=== PATIENT | male | born 1945 | race Caucasian/White ===

== ENCOUNTER 2021-05-16 13:44 | Outpatient (CLI) | payer MEDICARE, SELFPAY ==
[2021-05-16] VITALS (7 sets, daily range): BP systolic 144–155; BP diastolic 70–81; PULSE 71–88; RESP 18; TEMP 37.7; O2SAT 94–95
--- NOTE | 2021-05-16 14:05 | XR_ITS ---
FINAL REPORT CLINICAL HISTORY: cough covid positive FINDINGS: A single view of the chest was obtained. The heart is normal in size. The mediastinum is unremarkable. There are chronic changes at the lung bases. There is no acute pulmonary abnormality. There is no pleural effusion. There is no pneumothorax. There is no acute osseous abnormality. IMPRESSION: No acute cardiopulmonary process. Reviewed, Interpreted and Dictated by Bereket Hayward MD Transcribed by Taya Ag Authenticated by Bereket Hayward MD on 05/16/2021 02:55:10 PM [facility]
[2021-05-16 14:54] LABS: Chloride 97 mmol/L (98-107); Potassium 4.6 mmoL/L (3.5-5.1); Sodium 134 mmol/L (136-145)
[2021-05-16 14:55] LABS: Basophils % 0.8 % (0.1-2.0); Hematocrit 49.4 % (42.0-52.0); Hemoglobin 15.9 g/dL (14.1-18.0); Lymphocytes # 0.6 K/mm3 (0.7-4.5); Lymphocytes % 15.5 % (10-50); Mean Corpuscular HGB Conc 32.2 g/dL (31.8-35.4); Mean Corpuscular Hemoglobin 30.8 pg (27.0-31.2); Mean Corpuscular Volume 95.5 fl (80-94); Mean Platelet Volume 8.6 fl (7.4-10.4); Monocytes # 0.3 K/mm3 (0.1-1.0); Monocytes % 6.2 % (1.7-9.3); Neutrophils # 3.2 K/mm3 (1.8-7.8); Neutrophils % 77.5 % (37.0-80.0); Platelet Count 141 K/mm3 (142-424); Red Blood Count 5.18 M/mm3 (4.60-6.20); Red Cell Distribution Width 12.9 % (11.5-17.5); White Blood Count 4.1 K/mm3 (4.8-10.8)
[2021-05-16 14:57] LABS: Alanine Aminotransferase 21 U/L (12-78); Albumin Level 3.7 g/dl (3.5-5.0); Albumin/Globulin Ratio 1.1 (1.1-1.8); Alkaline Phosphatase 69 U/L (38-126); Anion Gap 12.6 mEq/L (5-15); Aspartate Amino Transferase 47 U/L (17-59); Bilirubin,Total 0.6 mg/dl (0.2-1.3); Blood Urea Nitrogen 25 mg/dl (9-20); Calcium 8.9 mg/dl (8.4-10.2); Carbon Dioxide 29 mmol/L (22.0-30.0); Creatinine Clearance Estimated 59 mL/min (50-200); Estimated Glomerular Filt Rate 72 ml/min (>60); GFR (African American) 88 ML/MIN (>60); Globulin 3.4 g/dL (1.3-3.2); Glucose 144 mg/dl (74-100); Total Protein,Serum 7.1 g/dl (6.3-8.2)
== END 2021-05-16 17:24 | disposition home or self-care (01) ==
LOC: INF 13:52
PROVIDERS: PCP Internal Medicine Adolescent Medicine; Visit Provider Internal Medicine Adolescent Medicine
DX: U07.1 COVID-19 (principal); Z23 Encounter for immunization; E86.0 Dehydration
CPT/HCPCS: 36415; 71045; 80053; 83735; 85025; 96360; 96367; J2405

== ENCOUNTER 2021-05-23 21:57 | Inpatient (IN) | payer MEDICARE, SELFPAY ==
[2021-05-23 22:05] VITALS: BP 158/88; PULSE 113; RESP 20; TEMP 37.2; O2SAT 82; BMI 20.9
[2021-05-23 22:08] VITALS: BP 158/88; PULSE 122; O2SAT 83
--- NOTE | 2021-05-23 22:13 | XR_ITS ---
PROCEDURE INFORMATION: Exam: XR Chest Exam date and time: 05/23/2021 10:13 PM Age: 75 years old Clinical indication: Condition or disease; Other: Covid TECHNIQUE: Imaging protocol: XR of the chest. Views: 1 view. COMPARISON: CR XR CHEST PORTABLE 05/16/2021 2:36 PM FINDINGS: Lungs: Moderate bilateral airspace disease concerning for pneumonia most pronounced in the lower lobes. Pleural spaces: Unremarkable. No pleural effusion. No pneumothorax. Heart/Mediastinum: Cardiomegaly. Bones/joints: Unremarkable. IMPRESSION: Bilateral lower lobe predominant pneumonia.
[2021-05-23 22:20] VITALS: BMI 20.9
--- NOTE | 2021-05-23 22:21 | CT_ITS ---
PROCEDURE INFORMATION: Exam: CTA Chest With Contrast Exam date and time: 05/23/2021 10:21 PM Age: 75 years old Clinical indication: Shortness of breath; Additional info: SOA TECHNIQUE: Imaging protocol: Computed tomographic angiography of the chest with contrast. 3D rendering (Not supervised by radiologist): MIP and/or 3D reconstructed images were created by the technologist. Radiation optimization: All CT scans at this facility use at least one of these dose optimization techniques: automated exposure control; mA and/or kV adjustment per patient size (includes targeted exams where dose is matched to clinical indication); or iterative reconstruction. Contrast material: ISOVUE; Contrast volume: 70 ml; Contrast route: INTRAVENOUS (IV); COMPARISON: CR XR CHEST PORTABLE 05/23/2021 10:23 PM FINDINGS: Pulmonary arteries: Positive subsegmental PE in the right lower lobe. Aorta: Unremarkable. No aortic aneurysm. No aortic dissection. Lungs: Biapical scarring. There is extensive airspace disease in the lower lobes concerning for severe pneumonia. Pleural spaces: Unremarkable. No pneumothorax. No pleural effusion. Heart: Unremarkable. No cardiomegaly. No pericardial effusion. Lymph nodes: Enlarged mediastinal lymph nodes. Bones/joints: Unremarkable. No acute fracture. Soft tissues: Unremarkable. IMPRESSION: 1. Tiny subsegmental PE in the right lower lobe. 2. Severe bilateral lower lobe predominant pneumonia.
[2021-05-23 22:24] LABS: ABG Base Excess -1.9 mmol/L (-2.4-2.3); ABG HCO3 21.3 mmhg (22.0-26.0); ABG Oxygen Saturation 90 % (90-100); ABG PO2 51.7 mmhg (80-100); ABG TCO2 22.2 mmhg (23-27)
[2021-05-23 22:25] LABS: Allen's Test Acceptable; Oxygen 4l %; Source Right Radial
[2021-05-23 22:26] LABS: Influenza A, PCR Not Detected (NotDetected); Influenza B, PCR Not Detected (NotDetected)
--- NOTE | 2021-05-23 22:26 | CT_ITS ---
PROCEDURE INFORMATION: Exam: CT Abdomen And Pelvis With Contrast Exam date and time: 05/23/2021 10:26 PM Age: 75 years old Clinical indication: Abdominal pain; Additional info: Abd pain TECHNIQUE: Imaging protocol: Computed tomography of the abdomen and pelvis with contrast. Radiation optimization: All CT scans at this facility use at least one of these dose optimization techniques: automated exposure control; mA and/or kV adjustment per patient size (includes targeted exams where dose is matched to clinical indication); or iterative reconstruction. Contrast material: ISOVUE; Contrast volume: 70 ml; Contrast route: IV; COMPARISON: CR XR CHEST PORTABLE 05/23/2021 10:23 PM FINDINGS: Lungs: Bilateral lower lobe pneumonia. Liver: Normal. No mass. Gallbladder and bile ducts: Normal. No calcified stones. No ductal dilation. Pancreas: Normal. No ductal dilation. Spleen: Normal. No splenomegaly. Adrenal glands: Normal. No mass. Kidneys and ureters: Tiny cyst in the right kidney requiring no further follow-up. Tiny cyst in the left kidney requiring no further follow-up. No hydronephrosis or calcified stones. Stomach and bowel: Diverticulosis in the sigmoid and descending colon without diverticulitis. No small bowel obstruction. Appendix: No evidence of appendicitis. Intraperitoneal space: Unremarkable. No free air. No significant fluid collection. Vasculature: Unremarkable. No abdominal aortic aneurysm. Lymph nodes: Unremarkable. No enlarged lymph nodes. Urinary bladder: Multiple urinary bladder diverticuli. Reproductive: Unremarkable as visualized. Bones/joints: Unremarkable. No acute fracture. Soft tissues: Unremarkable. IMPRESSION: 1. Bilateral lower lobe pneumonia. 2. No acute intra-abdominal or intrapelvic process.
[2021-05-23 22:28] LABS: Basophils # 0.1 K/mm3 (0-0.2); Basophils % 0.5 % (0.1-2.0); Eosinophils % 0.2 % (0.1-12.0); Hematocrit 49.1 % (42.0-52.0); Lymphocytes # 0.9 K/mm3 (0.7-4.5); MANUAL DIFFERENTIAL MANUAL DIFFERENTIAL (MANUAL DIFF); Mean Corpuscular HGB Conc 32.6 g/dL (31.8-35.4); Mean Corpuscular Hemoglobin 31.1 pg (27.0-31.2); Mean Corpuscular Volume 95.2 fl (80-94); Mean Platelet Volume 9.9 fl (7.4-10.4); Monocytes # 0.7 K/mm3 (0.1-1.0); Monocytes % 5.9 % (1.7-9.3); Neutrophils # 10.9 K/mm3 (1.8-7.8); Neutrophils % 86.4 % (37.0-80.0); Platelet Count 167 K/mm3 (142-424); Red Blood Count 5.16 M/mm3 (4.60-6.20); Red Cell Distribution Width 12.9 % (11.5-17.5); White Blood Count 12.7 K/mm3 (4.8-10.8)
[2021-05-23 22:30] VITALS: BP 153/85; PULSE 112; O2SAT 91
[2021-05-23 22:42] LABS: Amylase 53 U/L (30-110)
[2021-05-23 22:43] LABS: Alanine Aminotransferase 31 U/L (12-78); Albumin Level 3.6 g/dl (3.5-5.0); Albumin/Globulin Ratio 0.8 (1.1-1.8); Alkaline Phosphatase 105 U/L (38-126); Anion Gap 12.9 mEq/L (5-15); Aspartate Amino Transferase 36 U/L (17-59); Bilirubin,Total 1.6 mg/dl (0.2-1.3); Blood Urea Nitrogen 16 mg/dl (9-20); Calcium 9.8 mg/dl (8.4-10.2); Carbon Dioxide 31 mmol/L (22.0-30.0); Chloride 93 mmol/L (98-107); Creatinine Clearance Estimated 62 mL/min (50-200); Estimated Glomerular Filt Rate 82 ml/min (>60); GFR (African American) 99 ML/MIN (>60); Globulin 4.3 g/dL (1.3-3.2); Glucose 158 mg/dl (74-100); Potassium 3.9 mmoL/L (3.5-5.1); Sodium 133 mmol/L (136-145); Total Protein,Serum 7.9 g/dl (6.3-8.2)
[2021-05-23 22:53] LABS: Coronavirus 19, PCR Detected (NotDetected); Erythrocyte Sedimentation Rate 19 mm/hr (0-20)
[2021-05-23 22:54] LABS: Eosinophils % 3 % (0-3); Hypochromasia 1+; Lactic Acid 1.7 mmol/L (0.7-2.1); Lymphocytes % 8 % (10-50); Monocytes % 6 % (2-9); Neutrophils % 83 % (42-76); Platelet Estimate Normal; Total Cells Counted 100
[2021-05-23 22:56] LABS: Troponin I < 0.01 ng/ml (0.00-0.034)
[2021-05-23 23:00] VITALS: BP 153/78; PULSE 104; O2SAT 93
[2021-05-23 23:02] LABS: Lipase 25 U/L (23-300)
--- NOTE | 2021-05-23 23:02 | ECG_ITS ---
APPROVED REPORT Exam: Resting ECG HR:103 bpm ECG Measurements Heart Rate 103 AXES ID 164 P 53 QRSd 76 QRS 23 QT 378 T 68 QTc 495 Conclusion Sinus tachycardia Otherwise normal ECG Electronically signed by : Parmjit Shore MD 05/26/2021 13:47:38
--- NOTE | 2021-05-23 23:27 | PC.NURSE ---
pt returned from rad.
[2021-05-23 23:30] VITALS: BP 162/83; PULSE 104; O2SAT 91
--- NOTE | 2021-05-23 23:41 | HMH.EDSOB ---
ED Disposition Clinical Impression: Pulmonary embolism associated with COVID-19, Pneumonia due to COVID-19 virus, Acute respiratory failure due to COVID-19 Disposition: Admitted As Inpatient Condition on Discharge: Serious Referrals: Parmjit Shore MD [Primary Care Provider] - - Critical Care Critical Care Time: No Attestation: On 05/23/21, the high probability of a clinically significant, sudden or life threatening deterioration of the following system(s) required my full and direct attention, intervention and personal management. The time I documented below is in addition to time spent performing reported procedures but includes the following listed in this critical care notation. Medical Decision Making - Medical Records Medical records reviewed: Yes: I reviewed the patient's medical records. - Sarabjit Inquiry Pt receiving controlled substance: No Vital Signs: 05/23/21 22:05 05/23/21 22:08 05/23/21 22:30 Temperature 99.0 F Temperature Source Rectal Pulse Rate 122 H 112 H Pulse Rate [Apical] 113 H Respiratory Rate 20 Blood Pressure 158/88 H 153/85 H Blood Pressure [Right Arm] 158/88 H Blood Pressure Mean Blood Pressure Mean [Right Arm] 111 Blood Pressure Source [Right Arm] Automatic Cuff Blood Pressure Position [Right Arm] Sitting 02 Sat by Pulse Oximetry 82 L 83 L 91 L Oxygen Delivery Method Room Air Room Air Nasal Cannula Oxygen Flow Rate (LPM) 4 05/23/21 23:00 05/23/21 23:30 05/23/21 23:45 Temperature Temperature Source Pulse Rate 104 H 104 H 103 H Pulse Rate [Apical] Respiratory Rate Blood Pressure 153/78 H 162/83 H 151/82 H Blood Pressure [Right Arm] Blood Pressure Mean 103 Blood Pressure Mean [Right Arm] Blood Pressure Source [Right Arm] Blood Pressure Position [Right Arm] 02 Sat by Pulse Oximetry 93 L 91 L 92 L Oxygen Delivery Method Nasal Cannula Nasal Cannula Oxygen Flow Rate (LPM) 4 4 4 - Lab Data Lab results reviewed: Yes: I reviewed the patient's lab results. Lab Results 05/23/21 22:11: Specimen Source Right radial, O2 % 4l, ABG pH 7.50 H, ABG pCO2 28.0 L, ABG pO2 51.7 L, ABG HCO3 21.3 L, ABG Total CO2 22.2 L, ABG O2 Saturation 90, ABG Base Excess -1.9, Burt Test Acceptable 05/23/21 22:15: WBC 12.7 H, RBC 5.16, Hgb 16.0, Hct 49.1, MCV 95.2 H, MCH 31.1, MCHC 32.6, RDW 12.9, Plt Count 167, MPV 9.9, Neut % (Auto) 86.4 H, Lymph % (Auto) 7.0 L, [place] % (Auto) 5.9, Eos % (Auto) 0.2, Baso % (Auto) 0.5, Neut # (Auto) 10.9 H, Lymph # (Auto) 0.9, [place] # (Auto) 0.7, Eos # (Auto) 0.0, Baso # (Auto) 0.1, Total Counted 100, Neutrophils % (Manual) 83 H, Lymphocytes % (Manual) 8 L, Monocytes % (Manual) 6, Eosinophils % (Manual) 3, Platelet Estimate Normal, Hypochromasia 1+, ESR 19 05/23/21 22:15: Sodium 133 L, Potassium 3.9, Chloride 93 L, Carbon Dioxide 31 H, Anion Gap 12.9, BUN 16, Creatinine 0.90, Estimated Creat Clear 62, Estimated GFR 82, Est GFR ( Amer) 99, Glucose 158 H, Calcium 9.8, Total Bilirubin 1.6 H, AST 36, ALT 31, Alkaline Phosphatase 105, Total Protein 7.9, Albumin 3.6, Globulin 4.3 H, Albumin/Globulin Ratio 0.8 L 05/23/21 22:15: Lactate 1.7 05/23/21 22:15: SARS-CoV-2 (PCR) Detected A, Influenza A Untype (PCR) Not detected, Influenza Type B (PCR) Not detected 05/23/21 22:15: Troponin I < 0.01, Amylase 53, Procalcitonin 0.140 05/23/21 22:15: Lipase 25 Result diagrams: 05/23/21 22:15 05/23/21 22:15 Orders (Tests/Meds): ED MEDICATIONS Generic Name Dose Route Start Last Admin Trade Name Freq PRN Reason Stop Dose Admin Sodium Chloride 1,000 mls @ 999 mls/hr 05/23/21 22:45 05/23/21 22:42 Sod Chlor 0.9% 1000ml Bag IV 05/23/21 23:45 999 mls/hr .[id number] MARY BETH Administration Discontinued Medications Generic Name Dose Route Start Last Admin Trade Name Freq PRN Reason Stop Dose Admin Dexamethasone Sodium Phosphate 10 mg 05/23/21 22:37 05/23/21 22:42 Dexamethasone 4mg/Ml 5ml Mdv IV 05/23/21 22:38 10 mg ONC
[2021-05-23 23:45] VITALS: BP 151/82; PULSE 103; O2SAT 92
--- NOTE | 2021-05-23 23:50 | PC.NURSE ---
Dr Malone speaking with NATALIOAD
[2021-05-24] VITALS (14 sets, daily range): BP systolic 127–154; BP diastolic 66–89; PULSE 71–113; RESP 18–92; TEMP 36.6–37.6; O2SAT 90–96; BMI 19.8
[2021-05-24 00:09] LABS: Microscopic, Urine URINE MICROSCOPIC (MICROSCOPIC)
--- NOTE | 2021-05-24 00:09 | PC.NURSE ---
rohit on phone with dr schuster @ this time
[2021-05-24 00:15] LABS: Appearance,Urine CLEAR (Clear); Bilirubin,Urine Negative (Negative); Blood, Urine TRACE-I (Negative); Color,Urine YELLOW (Yellow); Glucose,Urine (UA) Negative (Negative); Ketones,Urine Negative (Negative); Leukocyte Esterase,Urine Negative (Negative); Nitrate,Urine Negative (Negative); Protein,Urine 2+ (Negative)
--- NOTE | 2021-05-24 00:19 | PC.NURSE ---
pt has password Bashir set up @ this time
[2021-05-24 00:26] LABS: WBC,Urine Occasional #/hpf (0-3)
--- NOTE | 2021-05-24 00:56 | PC.NURSE ---
PT ARRIVED TO FLOOR VIA W/C FROM ED W/STAFF @ [id number]
--- NOTE | 2021-05-24 07:00 | XR_ITS ---
FINAL REPORT CLINICAL HISTORY: sob COMPARISON: May 23, 2021 FINDINGS: SINGLE VIEW CHEST. The heart is normal in size. The mediastinum is unremarkable. There are persistent bilateral pulmonary opacities consistent with bilateral pneumonia. There is no pneumothorax. IMPRESSION: Bilateral pneumonia. Reviewed, Interpreted and Dictated by Jerry Hodges III, MD Transcribed by Renetta Carr Authenticated by Jerry Hodges III, MD on 05/24/2021 07:42:34 AM [facility]
[2021-05-24 07:05] LABS: Basophils % 0.2 % (0.1-2.0); Hematocrit 43.3 % (42.0-52.0); Lymphocytes # 0.5 K/mm3 (0.7-4.5); Lymphocytes % 3.8 % (10-50); Mean Corpuscular HGB Conc 32.3 g/dL (31.8-35.4); Mean Corpuscular Hemoglobin 30.9 pg (27.0-31.2); Mean Corpuscular Volume 95.4 fl (80-94); Mean Platelet Volume 10.1 fl (7.4-10.4); Monocytes # 0.3 K/mm3 (0.1-1.0); Monocytes % 2.1 % (1.7-9.3); Neutrophils # 12.8 K/mm3 (1.8-7.8); Neutrophils % 93.9 % (37.0-80.0); Platelet Count 233 K/mm3 (142-424); Red Blood Count 4.54 M/mm3 (4.60-6.20); Red Cell Distribution Width 12.9 % (11.5-17.5); White Blood Count 13.6 K/mm3 (4.8-10.8)
--- NOTE | 2021-05-24 07:13 | HMH.HP ---
*Admission Date: 05/24/21 *Chief complaint: Covid pneumonia, shortness of breath *History of present illness: Mr. Velez is a 75-year-old male with no significant past medical history. Recently established with our office a week ago due to concern for exposure to COVID. Symptoms of cough and flulike illness with concern for slight increase of confusion began around 14 May. Patient was diagnosed in our office with COVID on the third and treated with monoclonal antibody therapy on the same day. He has been at home until presenting to the ER yesterday due to increased work of breathing, complaint of right-sided upper quadrant pain, and increased cough, shortness of breath, nausea and vomiting. On assessment in the ER he was found to be tachycardic, tachypneic, new oxygen requirement of 4 L to maintain saturations in the low 90s. Imaging of his chest showed diffuse bilateral pneumonia. CTA of his chest concerning for subsegmental PE in the right lower lobe and significant lower lobe pneumonia. CT of his abdomen benign. Patient admitted to medicine for further management of his pulmonary emboli and acute hypoxemic respiratory failure secondary to COVID-19 pneumonia. On evaluation this morning, patient is very pleasant. Oriented to person and place. Just knows he does not feel well and felt more short of breath at home. Denies any nausea, chest pain, diarrhea, headaches this morning. Feeling better on Vapotherm. Currently on 60% and 30 L [facility] History I have reviewed the patient's past medical history: Yes *Have you ever received a pneumonia vaccine?: No *Have you received a flu vaccine this season?: No Other Surgeries: Yes: Hernia Repair, Other - *Social History Smoking Status: Unknown if ever smoked Alcohol Intake: never *Occupational Status:: retired Housing: house Household Members: family *Travel in the last 8 weeks: None Family Hx:: No significant family history Review of Systems - Review of Systems Review of systems:: pertinent systems reviewed and negative unless documented below (14 point review of systems performed, pertinent positives and negatives as per HPI) - *Neurologic Denies localized weakness Meds Home Medications Medication Instructions Recorded Confirmed Type ondansetron HCL [Ondansetron 4mg 4 mg PO TID PRN 05/24/21 05/24/21 History tab*] Allergies Allergy/AdvReac Type Severity Reaction Status Date / Time aspirin Allergy Swelling Verified 05/23/21 22:33 of Lip/Tongue/Throat Penicillins Allergy Swelling Verified 05/23/21 22:33 of Lip/Tongue/Throat Exam Vital signs and Labs for Last 24 Hours: Temp Pulse Resp BP Pulse Ox 99.1 F 98 H 18 141/79 H 90 L 05/24/21 04:00 05/24/21 04:00 05/24/21 04:00 05/24/21 04:00 05/24/21 05:55 Laboratory Results - last 24 hr 05/23/21 22:11: Specimen Source Right radial, O2 % 4l, ABG pH 7.50 H, ABG pCO2 28.0 L, ABG pO2 51.7 L, ABG HCO3 21.3 L, ABG Total CO2 22.2 L, ABG O2 Saturation 90, ABG Base Excess -1.9, Burt Test Acceptable 05/23/21 22:15: WBC 12.7 H, RBC 5.16, Hgb 16.0, Hct 49.1, MCV 95.2 H, MCH 31.1, MCHC 32.6, RDW 12.9, Plt Count 167, MPV 9.9, Neut % (Auto) 86.4 H, Lymph % (Auto) 7.0 L, [place] % (Auto) 5.9, Eos % (Auto) 0.2, Baso % (Auto) 0.5, Neut # (Auto) 10.9 H, Lymph # (Auto) 0.9, [place] # (Auto) 0.7, Eos # (Auto) 0.0, Baso # (Auto) 0.1, Total Counted 100, Neutrophils % (Manual) 83 H, Lymphocytes % (Manual) 8 L, Monocytes % (Manual) 6, Eosinophils % (Manual) 3, Platelet Estimate Normal, Hypochromasia 1+, ESR 19 05/23/21 22:15: Sodium 133 L, Potassium 3.9, Chloride 93 L, Carbon Dioxide 31 H, Anion Gap 12.9, BUN 16, Creatinine 0.90, Estimated Creat Clear 62, Estimated GFR 82, Est GFR ( Amer) 99, Glucose 158 H, Calcium 9.8, Total Bilirubin 1.6 H, AST 36, ALT 31, Alkaline Phosphatase 105, Total Protein 7.9, Albumin 3.6, Globulin 4.3 H, Albumin/Globulin Ratio 0.8 L 05/23/21 22:15: Lactate 1.7 05/23/21 22:15: SARS-Co
[2021-05-24 07:15] LABS: Anion Gap 12.3 mEq/L (5-15); Blood Urea Nitrogen 16 mg/dl (9-20); Carbon Dioxide 25 mmol/L (22.0-30.0); Chloride 100 mmol/L (98-107); Creatinine Clearance Estimated 58 mL/min (50-200); Estimated Glomerular Filt Rate 109 ml/min (>60); GFR (African American) 132 ML/MIN (>60); Glucose 174 mg/dl (74-100); Potassium 4.3 mmoL/L (3.5-5.1); Sodium 133 mmol/L (136-145)
[2021-05-24 07:25] LABS: Hemoglobin 14.2 g/dL (14.1-18.0)
--- NOTE | 2021-05-24 07:41 | P.CONPHA_ITS ---
[facility] Pharmacy VTE Monitoring - Patient Demographics Admission date: 05/24/21 Report Date: 05/24/21 Time: 07:41 Allergies/Adverse Reactions: Patient Allergies aspirin Allergy (Verified 05/23/21 22:33) Swelling of Lip/Tongue/Throat Penicillins Allergy (Verified 05/23/21 22:33) Swelling of Lip/Tongue/Throat Height: 1.83 m Weight: 66.179 kg Patient Problems: Current Active Problems Pulmonary embolism associated with COVID-19 (Acute) Pneumonia due to COVID-19 virus (Acute) Acute respiratory failure due to COVID-19 (Acute) - VTE Risk Labs: VTE Related Lab Results Hgb 14.2 g/dL (14.1-18.0) D 05/24/21 06:06 Hct 43.3 % (42.0-52.0) 05/24/21 06:06 Plt Count 233 K/mm3 (142-424) D 05/24/21 06:06 BUN 16 mg/dl (9-20) 05/24/21 06:06 Creatinine 0.70 mg/dl (0.66-1.25) D 05/24/21 06:06 Estimated Creat Clear 58 mL/min (50-200) 05/24/21 06:06 Was VTE Risk Assessment Performed: Yes VTE Risk Level: Moderate Risk Clinical Trial Participant: No - Prophylaxis VTE Prophylaxis Ordered?: Yes Types of VTE Prophylaxis: TEDS Knee High, Pharmacological Pharmacologic Type: Enoxaparin
--- NOTE | 2021-05-24 10:16 | HMH.PHAINT ---
verified pt meds with doctors office
--- NOTE | 2021-05-24 15:36 | PC.NURSE ---
Pt is alert to self and place. Lungs are clear but diminished. He remains on vapotherm 30L/60% w/O2 sats in the mid 90's. He has an intermittent, non productive cough. IS spirometer was given to patient with thorough instructions on use but patient was unable to correctly perform return demonstration. Will attempt again later. He uses a urinal at the bedside independently. Appetite OK. Daughter called and was updated on poc. I also called daughter from patients room so she could talk to him. No complaints verbalized.
--- NOTE | 2021-05-24 18:21 | PC.NURSE ---
Pt removed his hearing aid and gave it Will, RT. I took it and put it in a denture cup with pts label and placed on bedside table.
[2021-05-25] VITALS (9 sets, daily range): BP systolic 113–151; BP diastolic 61–79; PULSE 64–119; RESP 18–22; TEMP 36.4–36.9; O2SAT 9–95; BMI 19.9
[2021-05-25 06:30] LABS: Basophils % 0.2 % (0.1-2.0); Hematocrit 41.3 % (42.0-52.0); Hemoglobin 13.3 g/dL (14.1-18.0); Lymphocytes % 5.2 % (10-50); Mean Corpuscular HGB Conc 32.2 g/dL (31.8-35.4); Mean Corpuscular Hemoglobin 30.5 pg (27.0-31.2); Mean Corpuscular Volume 94.6 fl (80-94); Mean Platelet Volume 10.3 fl (7.4-10.4); Monocytes # 0.9 K/mm3 (0.1-1.0); Monocytes % 4.9 % (1.7-9.3); Neutrophils # 16.6 K/mm3 (1.8-7.8); Neutrophils % 89.7 % (37.0-80.0); Platelet Count 138 K/mm3 (142-424); Red Blood Count 4.36 M/mm3 (4.60-6.20); Red Cell Distribution Width 13.1 % (11.5-17.5); White Blood Count 18.5 K/mm3 (4.8-10.8)
[2021-05-25 06:33] LABS: Alanine Aminotransferase 23 U/L (12-78); Albumin Level 2.9 g/dl (3.5-5.0); Albumin/Globulin Ratio 0.8 (1.1-1.8); Alkaline Phosphatase 84 U/L (38-126); Aspartate Amino Transferase 30 U/L (17-59); Bilirubin,Total 0.7 mg/dl (0.2-1.3); Blood Urea Nitrogen 18 mg/dl (9-20); Calcium 9.2 mg/dl (8.4-10.2); Carbon Dioxide 27 mmol/L (22.0-30.0); Chloride 103 mmol/L (98-107); Creatinine Clearance Estimated 59 mL/min (50-200); Estimated Glomerular Filt Rate 109 ml/min (>60); GFR (African American) 132 ML/MIN (>60); Globulin 3.5 g/dL (1.3-3.2); Glucose 141 mg/dl (74-100); Magnesium 2.2 mg/dl (1.6-2.3); Sodium 134 mmol/L (136-145); Total Protein,Serum 6.4 g/dl (6.3-8.2)
[2021-05-25 07:07] LABS: MANUAL DIFFERENTIAL MANUAL DIFFERENTIAL (MANUAL DIFF)
--- NOTE | 2021-05-25 08:51 | P.PN_ITS ---
Internal Medicine - PN: Subj *Date: 05/25/21 *Time: 08:51 Interval history: Patient is awake, alert, oriented x2, recognizes me, states that he wants to go home. Nurses report that he ate about 50% of his breakfast. Exam Vital signs and Labs for Last 24 Hours: Temp Pulse Resp BP Pulse Ox 97.6 F 85 20 142/79 H 92 L 05/25/21 04:00 05/25/21 06:22 05/25/21 04:00 05/25/21 04:00 05/25/21 06:22 Laboratory Results - last 24 hr 05/25/21 05:44: WBC 18.5 H D, RBC 4.36 L, Hgb 13.3 L, Hct 41.3 L, MCV 94.6 H, MCH 30.5, MCHC 32.2, RDW 13.1, Plt Count 138 L D, MPV 10.3, Neut % (Auto) 89.7 H , Lymph % (Auto) 5.2 L, [place] % (Auto) 4.9, Eos % (Auto) 0.0 L, Baso % (Auto) 0.2, Neut # (Auto) 16.6 H, Lymph # (Auto) 1.0, [place] # (Auto) 0.9, Eos # (Auto) 0.0, Baso # (Auto) 0.0 05/25/21 05:44: Sodium 134 L, Potassium 4.0, Chloride 103, Carbon Dioxide 27, Anion Gap 8.0, BUN 18, Creatinine 0.70, Estimated Creat Clear 59, Estimated GFR 109, Est GFR ( Amer) 132, Glucose 141 H, Calcium 9.2, Magnesium 2.2, Total Bilirubin 0.7, AST 30, ALT 23 D, Alkaline Phosphatase 84, Total Protein 6.4, Albumin 2.9 L D, Globulin 3.5 H, Albumin/Globulin Ratio 0.8 L I & O for Last 24 hours: Intake & Output 05/22/21 05/23/21 05/24/21 05/25/21 11:59 11:59 11:59 11:59 Intake Total 1461 / 1461 360 / 360 Output Total 450 / 450 300 / 300 Balance 1011 / 1011 60 / 60 Weight 145 lb 14.4 oz 147 lb 6.4 oz Narrative: Patient sitting up in bed. Able to expand his chest fairly well, scattered rhonchi bilaterally. No tracheal deviation. Heart rate regular. Abdomen soft, he appears fairly well-hydrated. Oropharynx clear. Globally weak but able to move arms and legs well. Assessment and Plan (1) Acute respiratory failure due to COVID-19 Status: Acute Category: Medical Code(s): U07.1 - COVID-19; J96.00 - Acute respiratory failure, unspecified whether with hypoxia or hypercapnia (2) Pneumonia due to COVID-19 virus Status: Acute Category: Medical Code(s): U07.1 - COVID-19; J12.82 - Pneumonia due to coronavirus disease 2018 (3) Pulmonary embolism associated with COVID-19 Status: Acute Category: Medical Code(s): U07.1 - COVID-19; I26.99 - Other pulmonary embolism without acute cor pulmonale - Assessment and plan all Dx Assessment and Plan for all problems:: 1. 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 Patient has had infusion therapy and given length of time since diagnosis is not a candidate for remdesivir. I would also withhold steroids at this point, agree with Dr. Mcgarry's note on admission. 2. PE-on Lovenox, transition to Xarelto today. 3. 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 4. Continue nutritional support, up in a chair today.
[2021-05-25 09:08] LABS: Lymphocytes % 7 % (10-50); Monocytes % 1 % (2-9); Neutrophils % 92 % (42-76); Total Cells Counted 100
[2021-05-25 09:09] LABS: Platelet Estimate Clumped
[2021-05-25 09:11] LABS: Burr Cells 1+
--- NOTE | 2021-05-25 09:42 | HMH.OTEV ---
OT Inpatient Evaluation Rehab OT IP Evaluation Start: 05/25/21 08:53 Freq: ONCE Status: Complete Protocol: Document 05/25/21 09:[facility] (Rec: 05/25/21 09:41 [facility] [id number]) Rehab OT IP Assessment Subjective History Pt oriented x 2 on arrival. Pt was admitted via ED on due to Covid PNA and SOB. The following information was copied from patient physical and history report: Mr. Velez is a 75-year-old male with no significant past medical history. Recently established with our office a week ago due to concern for exposure to COVID. Symptoms of cough and flulike illness with concern for slight increase of confusion began around 14 May. Patient was diagnosed in our office with COVID on the third and treated with monoclonal antibody therapy on the same day. He has been at home until presenting to the ER yesterday due to increased work of breathing, complaint of right- sided upper quadrant pain, and increased cough, shortness of breath, nausea and vomiting. On assessment in the ER he was found to be tachycardic, tachypneic, new oxygen requirement of 4 L to maintain saturations in the low 90s. Imaging of his chest showed diffuse bilateral pneumonia. CTA of his chest concerning for subsegmental PE in the right lower lobe and significant lower lobe pneumonia. CT of his abdomen benign. Patient admitted to medicine for further management of his pulmonary emboli and acute hypoxemic respiratory failure secondary to COVID-19 pneumonia. On evaluation this morning,
--- NOTE | 2021-05-25 11:47 | HMH.PTEV ---
Physical Therapy Evaluation Rehab PT IP Evaluation Start: 05/25/21 08:53 Freq: ONCE Status: Active Protocol: Document 05/25/21 11:41 PHORNE (Rec: 05/25/21 11:46 PHORNE [id number]) Subjective/History History History 75 yowm adm to [facility] with COVID PNA. He reports he lives with spouse, no steps to enter the home, and he is independent with all mobility at baseline. Subjective Subjective Pt reports no c/o pain or discomfort this am, agrees to OOB. Rehab PT IP Eval Objective Appearance Patient Behavior Appropriate Patient Orientation Person,Place Difficulty following instructions none Speech Pattern Clear Ambulation Patient Able to Ambulate Yes Ambulation Observation IP General Gait Pattern Observation Wide Based Gait Ambulation Distance (feet) 15 Ambulation Assistive Device None Ambulation Ability Independent Balance Ability to Arise Able, uses arms to help Sitting Balance Steady, safe Standing Balance Steady, wide stance Dynamic Sitting Balance Ability Good Dynamic Standing Balance Ability Good Transfers Bed Transfer Ability Supervision/Stand by Chair Transfer Ability Supervision/Stand by Sit to Stand Bed Transfer Ability Supervision/Stand by Sit to Stand Chair Transfer Ability Supervision/Stand by ROM All Extremities PT ROM Status WFL MMT All Extremities PT MMT WFL Rehab PT IP prob,goals,plan Problems Date of Evaluation: 05/25/21 PT IP Problems Bed Mobility,Transfers,Gait Rehab Potential Rehab Potential Good Plan PT Intervention Plan Bed Mobility,Transfers,Gait, Self care,Therapeutic Exercise PT Plan Frequency BID Duration LOS Discharge Goals Bed Transfer Ability Independent Sit to Stand Chair Transfer Ability Independent Ambulation Assistive Device None Ambulation Distance (feet) 40 Discharge Plan PT Discharge Plan Pt is most appropriate for home with home health therapy at this time with family assist. G -code Required No Eval Complexity Eval Charge Codes 58594 - Moderate Complexity PHYSICIAN CERTIFICATION: I certify the specified therapy services for Chris Velez are required, authorized, and reviewed every 30 days.
--- NOTE | 2021-05-25 14:33 | PC.NURSE ---
Request received from MD to allow patient's family to visit. Chart reviewed per myself. Spoke directly with patient's daughter Jodie Lala via phone. Notified patient's daughter that visitation exception would be allowed for 1 + patient's at the same consecutive time. Daughter stated she was on the way to the hospital to brings patient's belongings and requested to visit patient. Educated in detail to Spike that mask would be required by both and must stay at patient's bedside. Discussed at length and in detail with Spike that visits cannot exceed 3 hours at maximum. Discussed in detail with Spike that noncompliance would result in forefeiture of visitation exception. Notified nursing staff and [employer]. Will follow up as needed.-----Kings Kumar RN, CNO
[2021-05-26] VITALS (11 sets, daily range): BP systolic 120–164; BP diastolic 64–80; PULSE 76–114; RESP 18–24; TEMP 36.9–37.3; O2SAT 90–99; BMI 20.5
--- NOTE | 2021-05-26 05:50 | PC.NURSE ---
pt has been awake most of the night, no issues or concerns noted, vss, pt on vapotherm 30/60 with o2 sats at 96%
--- NOTE | 2021-05-26 07:58 | PC.NURSE ---
Call received from patient's daughter requesting that patient's son be allowed to visit in her place. Daughter stated I don't live in town and can't make it there everyday. My mom doesn't drive and my brother would be bringing her if that is ok. Notified patient's daughter that it would be permitted to change the visitor without any issue. Notified nursing staff of change. Will follow up as needed. MERCEDES Downey
--- NOTE | 2021-05-26 08:40 | P.PN_ITS ---
Internal Medicine - PN: Subj *Date: 05/26/21 *Time: 08:40 Interval history: Patient is pleasant, talkative, oriented x2 which is his baseline at this point because of his somewhat confused status about the date. Remains on Vapotherm settings. Tolerating these well. O2 saturations 96%. Breathing comfortably, has eaten about a third of his breakfast this morning. Exam Vital signs and Labs for Last 24 Hours: Temp Pulse Resp BP Pulse Ox 98.7 F 80 20 164/75 H 94 L 05/26/21 04:00 05/26/21 06:37 05/26/21 04:00 05/26/21 04:00 05/26/21 06:37 Laboratory Results - last 24 hr 05/25/21 05:44: Total Counted 100, Neutrophils % (Manual) 92 H, Lymphocytes % (Manual) 7 L, Monocytes % (Manual) 1 L, Platelet Estimate Clumped, [place] Cells 1+ I & O for Last 24 hours: Intake & Output 05/23/21 05/24/21 05/25/21 05/26/21 11:59 11:59 11:59 11:59 Intake Total 1461 / 1461 600 / 600 340 / 340 Output Total 450 / 450 600 / 600 1775 / 1775 Balance 1011 / 1011 0 / 0 -1435 / -1435 Weight 145 lb 14.4 oz 147 lb 11.355 oz 151 lb 3.2 oz Microbiology Reports for the Last 24 Hours: Microbiology 05/23/21 22:15 Blood Blood Culture - Preliminary NO GROWTH AFTER 48 HOURS 05/23/21 22:15 Blood Blood Culture - Preliminary NO GROWTH AFTER 48 HOURS Narrative: Heart rate regular. Abdomen soft, extremities warm and well-perfused, no neurologic deficits except for his previously noted dysarthria. Lungs have good air movement, scattered rhonchi but no wheezing, no crackles. Symmetric air entry. Assessment and Plan (1) Acute respiratory failure due to COVID-19 Status: Acute Category: Medical Code(s): U07.1 - COVID-19; J96.00 - Acute respiratory failure, unspecified whether with hypoxia or hypercapnia (2) Pneumonia due to COVID-19 virus Status: Acute Category: Medical Code(s): U07.1 - COVID-19; J12.82 - Pneumonia due to coronavirus disease 2019 (3) Pulmonary embolism associated with COVID-19 Status: Acute Category: Medical Code(s): U07.1 - COVID-19; I26.99 - Other pulmonary embolism without acute cor pulmonale - Assessment and plan all Dx Assessment and Plan for all problems:: Overall stable/improved. Wean oxygen today. PT/OT evaluation noted. No change in medications today.
--- NOTE | 2021-05-26 12:47 | DIET.NUTRFU ---
Reviewing meal intake, he only consumed 25% of dinner and 10% of breakfast. He is meeting nutritional needs and at risk for weight loss. Will increase ensure to QID providing 2 cartons with dinner. Providing 880kcal 32gm protein, to help meet nutritional needs of 1700kcal and 68gm protein. Will continue to monitor meal intake, he is on regular diet. Would also recommend adding zinc and vitamin C which can promote good immune strength.
--- NOTE | 2021-05-26 13:31 | PC.NURSE ---
PT SITTING UP IN THE CHAIR. ALERT AND ORIENTED X2. NO COMPLAINTS OF DISCOMFORT. EATING AND DRINKING WELL. PT STATES HE IS FEELING BETTER. O2 SATURATION HAS MAINTAINED 90-94%. VAPOTHERM HAS BEEN WEANED TO 25 L 50% FIO2. PT PARTICIPATED WELL WITH PHYSICAL THERAPY THIS SHIFT. LUNG SOUNDS HAVE SCATTERED RHONCHI. ABDOMEN SOFT/NON TENDER WITH ACTIVE BOWEL SOUNDS. NO SWELLING NOTED TO BLE. WILL CONTINUE TO MONITOR.
--- NOTE | 2021-05-26 14:54 | DIET.NUTRFU ---
Spoke to nursing staff post lunch, he ate everything except chicken and drank 100% ensure. Also recommended vitamin C and zinc be added d/t COVID dx if medically feasible
[2021-05-27] VITALS (9 sets, daily range): BP systolic 128–142; BP diastolic 68–80; PULSE 63–117; RESP 17–24; TEMP 36.6–36.8; O2SAT 92–98; BMI 19.3
--- NOTE | 2021-05-27 04:26 | PC.NURSE ---
pt has rested well this shift, has been using urinal independently, was switched to 15L high flow NC, O2 sats have remained 91-94%, no complaints of SOA or pain this shift, HR has remained 102-109 this shift, systolic BP 120-136
--- NOTE | 2021-05-27 07:38 | HMH.ACPN2 ---
Internal Medicine - PN: Subj *Date: 05/27/21 *Time: 18:37 Interval history: Mr. Velez remains afebrile. Able to wean O2 down to 8L [place]. Denies any nausea or vomiting. Has been having increased stool output over the past 24 hours however. Exam cut short by him rushing to the bathroom for diarrhea again. Has had about 8 bowel movements reportedly in the past 24 hours. Tolerating fair p.o. intake. Staying hydrated. Denies chest pain, blood in stool, confusion Exam Vital signs and Labs for Last 24 Hours: Temp Pulse Resp BP Pulse Ox 98.0 F 101 H 20 136/80 94 L 05/27/21 04:00 05/27/21 06:43 05/27/21 04:00 05/27/21 04:00 05/27/21 06:43 I & O for Last 24 hours: Intake & Output 05/24/21 05/25/21 05/26/21 05/27/21 23:59 23:59 23:59 23:59 Intake Total 1821 / 1821 480 / 480 940 / 940 100 / 100 Output Total 550 / 750 1400 / 1900 1050 / 1250 200 / 200 Balance 1271 / 1071 -920 / -1420 -110 / -310 -100 / -100 Weight 66.179 kg 67 kg 68.583 kg 64.954 kg - Constitutional mild distress, thin - *Routine HEENT Exam Head: Present: normocephalic Eye: Present: EOMI, PERRL ENT: Present: mucous membranes moist - *Routine Neck Exam Present: supple. Absent: lymphadenopathy - *Routine Respiratory Exam Present: CTA bilaterally - *Routine Cardiovascular Exam Present: RRR - *Routine Abdominal Exam Present: soft. Absent: tenderness Comments: Hyperactive bowel sounds - *Routine Extremities Exam Absent: cyanosis, clubbing, edema - *Routine Skin Exam Present: warm. Absent: rash - *Routine Neurological Exam Present: alert, oriented X3 Assessment and Plan (1) Acute respiratory failure due to COVID-19 Status: Acute Category: Medical Code(s): U07.1 - COVID-19; J96.00 - Acute respiratory failure, unspecified whether with hypoxia or hypercapnia (2) Pneumonia due to COVID-19 virus Status: Acute Category: Medical Code(s): U07.1 - COVID-19; J12.82 - Pneumonia due to coronavirus disease 2019 (3) Pulmonary embolism associated with COVID-19 Status: Acute Category: Medical Code(s): U07.1 - COVID-19; I26.99 - Other pulmonary embolism without acute cor pulmonale (4) Diarrhea Status: Acute Category: Medical Code(s): R19.7 - Diarrhea, unspecified - Assessment and plan all Dx Assessment and Plan for all problems:: 75-year-old male with no known significant past medical history, other than 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 Unknown extent of this history. Not on any home oxygen prior to diagnosis of COVID-19. Status post monoclonal antibody infusion a week prior to admission. Presented with hypoxemic respiratory failure, progressive pneumonia, subsegmental right lower lobe pulmonary emboli. Tolerating inpatient management. Has developed worsening diarrhea over the past 24 hours. Acute hypoxemic respiratory failure secondary to COVID-19 pneumonia -Given that patient is at least 10 days out from onset of symptoms, status post monoclonal antibody therapy on the third, no indication for remdesivir or baricitinib at this time. We will continue with steroids and supplemental oxygen with goal saturation greater 90%. Weaning to nasal cannula if able in the next 24 to 48 hours to transition to dose he can take at home. -Continue incentive spirometry, continue duo nebs -Continue levofloxacin for empiric bacterial pneumonia coverage, today is day 5 of 7. Pulmonary emboli secondary to COVID-19 -Given finding on imaging, patient initiated on Lovenox, 1 mg/kg twice daily. We will continue this therapy for the time being. Anticipate transitioning to oral anticoagulation prior to DC Diarrhea -Differential diagnosis includes infectious, antibiotic induced, secondary to COVID. Given acute worsening in the past 24 hours, concern for possible C. difficile. Will obtain stool study. If positive, will initiate oral vancomycin. Full code Regular diet
--- NOTE | 2021-05-27 10:11 | HMH.ACPN2 ---
Internal Medicine - PN: Subj *Date: 05/27/21 *Time: 10:11 Exam Vital signs and Labs for Last 24 Hours: Temp Pulse Resp BP Pulse Ox 98.2 F 100 H 19 128/68 94 L 05/27/21 08:00 05/27/21 08:00 05/27/21 08:00 05/27/21 08:00 05/27/21 08:00 I & O for Last 24 hours: Intake & Output 05/24/21 05/25/21 05/26/21 05/27/21 23:59 23:59 23:59 23:59 Intake Total 1821 / 1821 480 / 480 940 / 940 280 / 280 Output Total 550 / 750 1400 / 1900 1050 / 1250 200 / 200 Balance 1271 / 1071 -920 / -1420 -110 / -310 80 / 80 Weight 66.179 kg 67 kg 68.583 kg 64.954 kg Assessment and Plan (1) Acute respiratory failure due to COVID-19 Status: Acute Category: Medical Code(s): U07.1 - COVID-19; J96.00 - Acute respiratory failure, unspecified whether with hypoxia or hypercapnia (2) Pneumonia due to COVID-19 virus Status: Acute Category: Medical Code(s): U07.1 - COVID-19; J12.82 - Pneumonia due to coronavirus disease 2019 (3) Pulmonary embolism associated with COVID-19 Status: Acute Category: Medical Code(s): U07.1 - COVID-19; I26.99 - Other pulmonary embolism without acute cor pulmonale The patient's infection will respond to the chosen ABx?: Yes Is the patient receiving the right drug, dose, and route?: Yes Could a more targeted ABx be ordered?: No
--- NOTE | 2021-05-27 13:58 | SW/DCPLANNER ---
EUGENIO ADMITTED TO THE ACUTE HOSPITAL WITH COVID AND RESPIRATORY DISTRESS.. PATIENT RESIDES AT HOME AND MAY DISCHARGE OVER THE WEEKEND.. HE IS CURRENTLY ON A HIGH FLOW 02 AND THEY ARE ATTEMPTING TO WEAN TO BE ABLE TO USE A NASAL CANNULA.. WILL MONITOR OVER THE WEEKEND AND HE WILL BE SET UP PRIOR TO DISCHARGING..
[2021-05-28] VITALS (8 sets, daily range): BP systolic 127–150; BP diastolic 74–83; PULSE 93–110; RESP 16–22; TEMP 36.3–36.8; O2SAT 86–98; BMI 19.1
[2021-05-28 06:45] LABS: Basophils # 0.1 K/mm3 (0-0.2); Eosinophils # 0.1 K/mm3 (0.0-0.4); Eosinophils % 0.9 % (0.1-12.0); Hematocrit 42.9 % (42.0-52.0); Hemoglobin 13.6 g/dL (14.1-18.0); Lymphocytes # 0.7 K/mm3 (0.7-4.5); Lymphocytes % 10.5 % (10-50); Mean Corpuscular HGB Conc 31.7 g/dL (31.8-35.4); Mean Corpuscular Hemoglobin 30.4 pg (27.0-31.2); Mean Corpuscular Volume 96.1 fl (80-94); Mean Platelet Volume 9.5 fl (7.4-10.4); Monocytes # 0.7 K/mm3 (0.1-1.0); Monocytes % 9.9 % (1.7-9.3); Neutrophils # 5.1 K/mm3 (1.8-7.8); Neutrophils % 77.6 % (37.0-80.0); Platelet Count 71 K/mm3 (142-424); Red Blood Count 4.47 M/mm3 (4.60-6.20); Red Cell Distribution Width 13.4 % (11.5-17.5); White Blood Count 6.6 K/mm3 (4.8-10.8)
--- NOTE | 2021-05-28 07:00 | PC.NURSE ---
Patient was awake all through night. VSS on NC. was able to titrate oxygen down to 4L this am. No c/o pain. Uses urinal and bsc to void. Bed alarm on for safety. Able to make needs known.
[2021-05-28 07:53] LABS: Chloride 104 mmol/L (98-107); Potassium 3.9 mmoL/L (3.5-5.1); Sodium 136 mmol/L (136-145)
[2021-05-28 07:55] LABS: Blood Urea Nitrogen 13 mg/dl (9-20); Creatinine Clearance Estimated 56 mL/min (50-200); Estimated Glomerular Filt Rate 94 ml/min (>60); GFR (African American) 113 ML/MIN (>60)
[2021-05-28 07:56] LABS: Alanine Aminotransferase 46 U/L (12-78); Albumin Level 3.1 g/dl (3.5-5.0); Albumin/Globulin Ratio 0.8 (1.1-1.8); Alkaline Phosphatase 84 U/L (38-126); Anion Gap 9.9 mEq/L (5-15); Aspartate Amino Transferase 52 U/L (17-59); Bilirubin,Total 1.1 mg/dl (0.2-1.3); Calcium 9.2 mg/dl (8.4-10.2); Carbon Dioxide 26 mmol/L (22.0-30.0); Globulin 3.9 g/dL (1.3-3.2); Glucose 109 mg/dl (74-100)
[2021-05-28 07:57] LABS: Magnesium 2.2 mg/dl (1.6-2.3)
--- NOTE | 2021-05-28 09:04 | HMH.DCSUM ---
General - General Admission date:: 05/24/21 Discharge date: 05/28/21 HPI HPI: Mr. Velez is a 75-year-old male with no significant past medical history. Recently established with our office a week ago due to concern for exposure to COVID. Symptoms of cough and flulike illness with concern for slight increase of confusion began around 14 May. Patient was diagnosed in our office with COVID on the and treated with monoclonal antibody therapy on the same day. He has been at home until presenting to the ER yesterday due to increased work of breathing, complaint of right-sided upper quadrant pain, and increased cough, shortness of breath, nausea and vomiting. On assessment in the ER he was found to be tachycardic, tachypneic, new oxygen requirement of 4 L to maintain saturations in the low 90s. Imaging of his chest showed diffuse bilateral pneumonia. CTA of his chest concerning for subsegmental PE in the right lower lobe and significant lower lobe pneumonia. CT of his abdomen benign. Patient admitted to medicine for further management of his pulmonary emboli and acute hypoxemic respiratory failure secondary to COVID-19 pneumonia. On evaluation this morning, patient is very pleasant. Oriented to person and place. Just knows he does not feel well and felt more short of breath at home. Denies any nausea, chest pain, diarrhea, headaches this morning. Feeling better on Vapotherm. 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 Unknown extent of this history. Not on any home oxygen prior to diagnosis of COVID-19. Status post monoclonal antibody infusion a week prior to admission. Presented with hypoxemic respiratory failure, progressive pneumonia, subsegmental right lower lobe pulmonary emboli. Admitted for management of COVID-19 pneumonia and sequela. Problems addressed as follows. Acute hypoxemic respiratory failure secondary to COVID-19 pneumonia -Given that patient was at least 10 days out from onset of symptoms, status post monoclonal antibody therapy on the third, he was not started on remdesivir or baricitinib given no clinical indication. Continued treatment with steroids and oxygen. Able to wean down from Vapotherm to high flow to 4 L nasal cannula by the time of discharge. Gradual improvement in shortness of breath. Initiated on levofloxacin given concern for bacterial pneumonia. Additionally started on Lovenox for pulmonary emboli, see below. -We will continue oxygen at home. [facility] -Sent home with incentive spirometer. Pulmonary emboli secondary to COVID-19 -Given finding on imaging, patient initiated on Lovenox, 1 mg/kg twice daily. Tolerated well, transition to Xarelto at time of discharge for continued outpatient therapy. Provided with samples for 5 weeks. Diarrhea -Differential diagnosis includes infectious, antibiotic induced, secondary to COVID. -Diarrhea significantly improved in less than 24 hours, no stool sample was obtained. Will monitor for improvement with cessation of antibiotics in the outpatient setting. Medically stable for discharge home. Counseled on new medications and possible side effects. This includes Xarelto, antibiotics, and steroids. Will go home with home oxygen. Close follow-up in our office in the next week. Objective Vital signs: Temp Pulse Resp BP Pulse Ox 97.4 F L 93 H 16 141/76 H 97 05/28/21 04:00 05/28/21 04:00 05/28/21 04:00 05/28/21 04:00 05/28/21 06:25 Narrative: - Constitutional minimal distress, thin, on 4L NC O2 - *Routine HEENT Exam Head: Present: normocephalic Eye: Present: EOMI, PERRL ENT: Present: mucous membranes moist - *Routine Neck Exam Present: supple. Absent: lymphadenopathy - *Routine Respiratory Exam Present: CTA bilaterally - *Routine Cardiovascular Exam Present: RRR - *Routine A
--- NOTE | 2021-05-28 11:22 | PC.NURSE ---
1015(charted at 1039) pt room air 86%
== END 2021-05-28 13:06 | disposition home or self-care (01) | DRG 177 ==
LOC: ER 22:34 → 2ND 05-24 00:21
PROVIDERS: Internal Medicine Adolescent Medicine; Admitting Provider Family Medicine; Emergency Provider Emergency Medicine; PCP Internal Medicine Adolescent Medicine; Visit Provider Internal Medicine Adolescent Medicine
DX: U07.1 COVID-19 (principal); J12.82 Pneumonia due to coronavirus disease 2019; J96.01 Acute respiratory failure with hypoxia; I26.99 Other pulmonary embolism without acute cor pulmonale; J60 Coalworker's pneumoconiosis; R41.0 Disorientation, unspecified; R19.7 Diarrhea, unspecified
CPT/HCPCS: 36415; 71045; 71275; 74177; 80048; 80053; 81001; 82150; 82803; 83605; 83690; 83735; 84145; 84484; 85007; 85025; 85651; 87040; 93005; 94640; 94760; 94761; 96365; 96367; 96372; 97110; 97116; 97162; 97166; 97530; 97535; 99285; C9803; J1956; J2405; Q9967; U0003; U0005

== ENCOUNTER → 2022-07-14 10:13 | Outpatient (CLI) | payer MEDICARE, SELFPAY | PROVIDERS: PCP Internal Medicine Adolescent Medicine; Visit Provider Surgery | DX: Z01.810 Encounter for preprocedural cardiovascular examination (principal) | CPT/HCPCS: 93005 ==

== ENCOUNTER → 2022-07-26 15:57 | Outpatient (CLI) | payer MEDICARE, SELFPAY ==
[2022-07-26 17:26] LABS: Basophils % 0.4 % (0.1-2.0); Eosinophils # 0.1 K/mm3 (0.0-0.4); Eosinophils % 0.6 % (0.1-12.0); Hematocrit 47.6 % (42.0-52.0); Hemoglobin 15.1 g/dL (14.1-18.0); Lymphocytes # 1.3 K/mm3 (0.7-4.5); Lymphocytes % 11.6 % (10-50); Mean Corpuscular HGB Conc 31.8 g/dL (31.8-35.4); Mean Corpuscular Hemoglobin 30.2 pg (27.0-31.2); Mean Platelet Volume 8.4 fl (7.4-10.4); Monocytes # 0.6 K/mm3 (0.1-1.0); Monocytes % 5.3 % (1.7-9.3); Platelet Count 227 K/mm3 (142-424); Red Blood Count 5.01 M/mm3 (4.60-6.20); Red Cell Distribution Width 12.8 % (11.5-17.5)
[2022-07-26 18:00] LABS: Chloride 105 mmol/L (98-107); Potassium 4.4 mmoL/L (3.5-5.1); Sodium 143 mmol/L (136-145)
[2022-07-26 18:03] LABS: Anion Gap 13.4 mEq/L (5-15); Blood Urea Nitrogen 18 mg/dl (9-20); Calcium 9.7 mg/dl (8.4-10.2); Carbon Dioxide 29 mmol/L (22.0-30.0); Estimated Glomerular Filt Rate 109 ml/min (>60); GFR (African American) 132 ML/MIN (>60); Glucose 122 mg/dl (74-100)
== END ==
PROVIDERS: PCP Internal Medicine Adolescent Medicine; Visit Provider Surgery
DX: K40.90 Unilateral inguinal hernia, without obstruction or gangrene, not specified as recurrent (principal); I26.99 Other pulmonary embolism without acute cor pulmonale
CPT/HCPCS: 36415; 80048; 85025

== ENCOUNTER → 2022-08-01 14:21 | Outpatient (CLI) | payer MEDICARE, SELFPAY ==
[2022-08-01 14:26] LABS: Microscopic, Urine URINE MICROSCOPIC (MICROSCOPIC)
[2022-08-01 20:35] LABS: Appearance,Urine CLEAR (Clear); Bilirubin,Urine Negative (Negative); Blood, Urine Negative (Negative); Color,Urine YELLOW (Yellow); Glucose,Urine (UA) Negative (Negative); Ketones,Urine Negative (Negative); Leukocyte Esterase,Urine Negative (Negative); Nitrate,Urine Negative (Negative); Protein,Urine 1+ (Negative); Urobilinogen,Urine 0.2 EU/dl (0.2)
== END ==
PROVIDERS: PCP Internal Medicine Adolescent Medicine; Visit Provider Surgery
DX: K40.90 Unilateral inguinal hernia, without obstruction or gangrene, not specified as recurrent (principal)
CPT/HCPCS: 81001

== ENCOUNTER 2022-08-03 07:56 | Day surgery (SDC) | payer MEDICARE, SELFPAY ==
[2022-07-14 09:57] VITALS: BMI 20.3
--- NOTE | 2022-07-14 10:34 | ECG_ITS ---
APPROVED REPORT Exam: Resting ECG HR:59 bpm ECG Measurements Heart Rate 59 AXES ND 182 P 51 QRSd 89 QRS 48 QT 424 T 44 QTc 422 Conclusion SINUS BRADYCARDIA NONSPECIFIC T-WAVE ABNORMALITY BORDERLINE ECG UNCONFIRMED REPORT Electronically signed by : Parmjit Shore MD 07/14/2022 15:49:18
[2022-08-03] VITALS (10 sets, daily range): BP systolic 128–192; BP diastolic 68–100; PULSE 64–71; RESP 14–18; TEMP 36.4–43; O2SAT 94–98
--- NOTE | 2022-08-03 08:56 | P.PN_ITS ---
[facility] Disclaimer: The information contained in this section may have been updated after the patient was seen, as this information can be updated by other users. Medical History Black lung disease Dyspnea on exertion History of 2019 novel coronavirus disease (COVID-19) History of pulmonary embolism Surgical History (Updated 08/03/22 @ 08:16 by Jodi Akhtar RN) History of surgery on upper extremity History of thoracic surgery Family History Other Asthma Cancer Social History (Updated 08/03/22 @ 08:16 by Jodi Akhtar RN) Smoking Status: Never smoker alcohol intake: never substance use type: denies use current occupational status: retired Travel in the last 8 weeks: None household members: family housing: house marital status: service: No special alberto needs: No agree to transfusion: No do you feel safe at home: Yes victim of physical abuse: No victim of emotional abuse: No victim of sexual abuse: No would you like helpful sources: No [facility] Anesthesia Checklist Patient Identification Patient Identification: Arm Band and Family Structural Data Admitted From: Home Planned Operative Procedure/s: Right Inguinal Hernia Repair Consent for Planned Operative Procedure(s) Verified: Yes Verified Documents: Surgical Consent NPO Status Verified Time NPO: 00:00 Additional verifications Patient : No Anesthesia Reactions: No Hx Blood Transfusions: No Blood Transfusion Reaction: No Cephalosporin Allergy: No Previous Colonoscopy: No Airway Assessment C-Spine Mobility Assessed: Yes TMJ Mobility Assessed: Yes Dentition: Edentulous Neurological Assessment Level of Consciousness: Awake, Alert, Appropriate and Follows Commands Hx Seizures: No Numbness or tingling in extremities: No Anesthesia Plan ASA Class: II Anesthesia Type: General Preoperative Comments Pre-Operative Comments: History of Black Lung. Allergy to aspirin. Hard of Hearing.
--- NOTE | 2022-08-03 11:31 | P.OP_ITS ---
Date of procedure: 08/03/22 Pre-op Diagnosis:: Right inguinal hernia Post-op Diagnosis:: Same Procedure performed:: Open right inguinal hernia repair Surgeon:: Mohinder Valentine MD Anesthesia: GETA Estimated blood loss (mL): 15 Operative findings:: Chronic inflammation throughout inguinal canal Complex indirect hernia Operative note:: After informed consent was obtained the patient was taken to the operating room and placed in the supine position. General anesthesia was induced and his abdomen and groin/scrotum were prepped and draped in a sterile fashion. After infiltration local anesthetic an oblique right groin incision was made. A combination of sharp dissection and electrocautery was utilized to transect through Peggy's fascia to the level of the external aponeurosis. The external aponeurosis was sharply opened to the level of the external ring. The contents of the canal were carefully elevated. Severe chronic adhesions were noted throughout. A combination of sharp dissection, blunt dissection, and electrocautery were utilized to free the hernia sac from surrounding tissue. The distal portion of the hernia sac was carefully opened to facilitate dissection. Running Vicryl suture was used to close the defect and an extra- large PerFix plug was secured in position utilizing interrupted Ethibond. The PerFix overlay was then secured to the shelving edge inferiorly and fascial margin superiorly with interrupted Ethibond. The external aponeurosis was reapproximated with running Vicryl suture. Peggy's fascia was closed in the same manner. Skin was then closed with running 3-0 Monocryl STRATAFIX. Dressings were applied and the patient was transferred to recovery in stable condition. Condition: stable Disposition: PACU Specimens:: None Complications:: No immediate
--- NOTE | 2022-08-03 11:37 | EXP.ANES.I ---
[facility] Anesthesia Record Part I Anesthesia Record I Intake, IV Amount: 1,400 Estimated blood loss (mL): 10 Urine output (mL): 100 Blood Products used (#): none Blood Pressure: 135/72 SaO2: 96 Pulse Rate: 65 Respiratory Rate: 14 Temperature: 98.0 F Patient is:: Drowsy and Stable Stable to PACU at:: 11:32
[2022-08-04 08:27] VITALS: BP 143/68; PULSE 64; TEMP 36.6
--- NOTE | 2022-08-04 08:27 | P.PNANES_ITS ---
[facility] Anesthesia Record Part II Anesthesia Record Part II Discharge Time: 12:02 Destination: Surgical Day Care (OP Surgery) PACU nurse assessment reviewed?: Yes Patient Condition:: Good Anesthesia Complications:: None Swallowing reflex intact?: Yes Cyanosis?: No Blood Pressure: 143/68 Pulse Rate: 64 Temperature: 97.8 F Mental Status: Alert & Oriented Pain level:: 0 Nausea and/or vomitting:: None Intake, IV Amount: 0
== END 2022-08-03 12:40 | disposition home or self-care (01) ==
PROVIDERS: PCP Internal Medicine Adolescent Medicine; Visit Provider Surgery
DX: K40.90 Unilateral inguinal hernia, without obstruction or gangrene, not specified as recurrent (principal); Z79.899 Other long term (current) drug therapy
CPT/HCPCS: 49505; 96374; J2405

== ENCOUNTER 2022-12-27 16:02 | Emergency (ER) | payer MEDICARE, SELFPAY ==
[2022-12-27 16:02] VITALS: BP 141/62; PULSE 73; RESP 21; TEMP 38.7; O2SAT 97; BMI 23.3
--- NOTE | 2022-12-27 16:02 | ECG_ITS ---
APPROVED REPORT Exam: Resting ECG HR:63 bpm ECG Measurements Heart Rate 63 AXES DC 180 P 49 QRSd 81 QRS 29 QT 358 T 89 QTc 366 Conclusion SINUS RHYTHM WITH MARKED SINUS ARRHYTHMIA NONSPECIFIC T-WAVE ABNORMALITY BORDERLINE ECG UNCONFIRMED REPORT Electronically signed by : Parmjit Shore MD 12/29/2022 08:43:02
--- NOTE | 2022-12-27 16:10 | CT_ITS ---
PROCEDURE INFORMATION: Exam: CT Head Without Contrast Exam date and time: 12/27/2022 5:02 PM Age: 77 years old Clinical indication: Altered mental status/memory loss; Additional info: AMS TECHNIQUE: Imaging protocol: Computed tomography of the head without contrast. Radiation optimization: All CT scans at this facility use at least one of these dose optimization techniques: automated exposure control; mA and/or kV adjustment per patient size (includes targeted exams where dose is matched to clinical indication); or iterative reconstruction. REPORTING DATA: Count of CT and Cardiac NM exams in prior 12 months: This patient has received 0 known CTs and 0 known cardiac nuclear medicine studies in the 12 months prior to the current study. COMPARISON: No relevant prior studies available. FINDINGS: Brain: Age-related involutional changes and chronic microvascular ischemic disease. No evidence for acute transcortical infarct. No mass effect or midline shift. No extra-axial collection. No acute intracranial hemorrhage. Basal cisterns are patent. Cerebral ventricles: No ventriculomegaly. Paranasal sinuses: Visualized sinuses are unremarkable. No fluid levels. Mastoid air cells: Visualized mastoid air cells are well aerated. Bones/joints: Unremarkable. No acute fracture. Soft tissues: Unremarkable. IMPRESSION: No evidence for acute transcortical infarct, acute intracranial hemorrhage, or mass effect.
--- NOTE | 2022-12-27 16:10 | CT_ITS ---
PROCEDURE INFORMATION: Exam: CT Abdomen And Pelvis With Contrast Exam date and time: 12/27/2022 5:04 PM Age: 77 years old Clinical indication: Fever; Additional info: Fever abd pain TECHNIQUE: Imaging protocol: Computed tomography of the abdomen and pelvis with contrast. Total images: 292 Radiation optimization: All CT scans at this facility use at least one of these dose optimization techniques: automated exposure control; mA and/or kV adjustment per patient size (includes targeted exams where dose is matched to clinical indication); or iterative reconstruction. Contrast material: ISOVUE; Contrast volume: 75 ml; Contrast route: IV; REPORTING DATA: Count of CT and Cardiac NM exams in prior 12 months: This patient has received 0 known CTs and 0 known cardiac nuclear medicine studies in the 12 months prior to the current study. COMPARISON: CT ABDOMEN PELVIS W CON 05/23/2021 10:56 PM FINDINGS: Diaphragm: A small sliding hiatal hernia is present. Liver: There is a diffuse decrease in hepatic parenchymal density, consistent with mild fatty infiltration. 2.3 cm ill-defined hypodense area noted within the left lobe of the liver. This may represent a hemangioma, however other etiologies not excluded. Gallbladder and bile ducts: Normal. No calcified stones. No ductal dilation. Pancreas: Normal. No ductal dilation. Spleen: Normal. No splenomegaly. Adrenal glands: Normal. No mass. Kidneys and ureters: 1 cm cyst present within the lower lobe of the right kidney with other smaller cysts present. Left kidney is within normal limits. Stomach and bowel: Mild diverticulosis is present in the distal colon. Large amount of stool is present throughout the colon. Appendix: No evidence of appendicitis. Intraperitoneal space: Normal. No significant fluid collection. Vasculature: Mild atherosclerotic disease. Lymph nodes: Unremarkable. No enlarged lymph nodes. Urinary bladder: Unremarkable as visualized. Reproductive: Unremarkable as visualized. Bones/joints: The lumbar spine demonstrates mild degenerative changes at multiple levels. Soft tissues: Soft tissues are normal. IMPRESSION: 1. There is a diffuse decrease in hepatic parenchymal density, consistent with mild fatty infiltration. 2. 2.3 cm ill-defined hypodense area noted within the left lobe of the liver. This may represent a hemangioma, however other etiologies not excluded. 3. Mild diverticulosis is present in the distal colon. 4. 1 cm cyst present within the lower lobe of the right kidney with other smaller cysts present. 5. Large amount of stool is present throughout the colon.
[2022-12-27 16:26] LABS: Basophils % 0.3 % (0.1-2.0); Eosinophils # 0.1 K/mm3 (0.0-0.4); Eosinophils % 0.7 % (0.1-12.0); Hematocrit 42.3 % (42.0-52.0); Hemoglobin 14.1 g/dL (14.1-18.0); Lymphocytes # 0.8 K/mm3 (0.7-4.5); Mean Corpuscular HGB Conc 33.5 g/dL (31.8-35.4); Mean Corpuscular Hemoglobin 31.8 pg (27.0-31.2); Mean Platelet Volume 8.2 fl (7.4-10.4); Monocytes # 0.5 K/mm3 (0.1-1.0); Monocytes % 6.4 % (1.7-9.3); Neutrophils # 6.5 K/mm3 (1.8-7.8); Neutrophils % 82.6 % (37.0-80.0); Platelet Count 181 K/mm3 (142-424); Red Blood Count 4.45 M/mm3 (4.60-6.20); White Blood Count 7.8 K/mm3 (4.8-10.8)
[2022-12-27 16:32] LABS: Alanine Aminotransferase 19 U/L (12-78); Albumin Level 3.8 g/dl (3.5-5.0); Albumin/Globulin Ratio 1.1 (1.1-1.8); Alkaline Phosphatase 93 U/L (38-126); Aspartate Amino Transferase 24 U/L (17-59); Bilirubin,Total 0.5 mg/dl (0.2-1.3); Blood Urea Nitrogen 13 mg/dl (9-20); Calcium 9.4 mg/dl (8.4-10.2); Carbon Dioxide 27 mmol/L (22.0-30.0); Chloride 103 mmol/L (98-107); Creatinine Clearance Estimated 54 mL/min (50-200); Estimated Glomerular Filt Rate 93 ml/min (>60); GFR (African American) 113 ML/MIN (>60); Globulin 3.5 g/dL (1.3-3.2); Glucose 122 mg/dl (74-100); Lipase 19 U/L (23-300); Magnesium 1.6 mg/dl (1.6-2.3); Sodium 137 mmol/L (136-145); Total Protein,Serum 7.3 g/dl (6.3-8.2)
--- NOTE | 2022-12-27 16:47 | HMH.EDGENADL ---
Discharge Plan Disposition Patient Disposition: Home, Self-Care Condition: Good Prescriptions Prescriptions: No Action famotidine 20 mg tablet 20 mg PO DAILY Referrals Follow up/Referrals: Parmjit Shore MD [Primary Care Provider] - See instructions Activity Restrictions/Add. Instructions Additional Instructions/Restrictions: Please follow-up with your primary care provider. Please return to the emergency department if you develop any new or worsening symptoms or become concerned for your health. Clinical Impressions Clinical Impression: COVID-19, Fever, Confusion Instructions Patient Instructions: DI for Skin Abscess Discharge ED Provider: Jordin Galindo General Adult HPI General Chief complaint: Skin/Abscess/Foreign Body Stated complaint: weak,dizzy, fever Time Seen by Provider: 12/27/22 16:10 Mode of Arrival: Family Vehicle Source of Information: Patient, Relative and Medical Record Limitations: Altered Mental Status Description of Symptoms (Recalled from ER Triage Doc. by RN): Pt brought in by family for AMS, weakness, and fever. States while at [facility] pt was confused and shuffling his feet when walking. No facial droop, no difficulty speaking or vision changes. Family also reports they have had to remove several small, non-filled ticks from the pt after a family event. Pt has a persistent, dry cough for weeks. Poor PO intake for 2 days. 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 History obtained from patient, daughter, . They report that the patient has been more generally weak, has had decreased p.o. intake, and has been more confused than normal. They report a shuffling of feet. Denies any focal neurologic deficits such as unilateral weakness or vision changes. They were at [facility] earlier today and patient was unsure where he was, this is abnormal for him. Patient reportedly has Alzheimer's at baseline and is normally not oriented to date or day of the week. Patient reports some epigastric abdominal pain which is stable for him. Patient reports chronic cough secondary to his lung disease. Patient has been peeing more than normal according to , but patient reports no urinary or bowel symptoms. Patient did have recent exposure to ticks, reportedly had numerous tiny ticks on him a couple of days ago. Patient had a birthday in the last couple of days and was feeling normal up until today. Patient has also had congestion and runny nose that is new today. Denies headache or neck pain or stiffness. Related Data Home Medications Medication Instructions Recorded Confirmed famotidine 20 mg tablet 20 mg PO DAILY Acid reflux 07/14/22 08/16/22 Allergies Allergy/AdvReac Type Severity Reaction Status Date / Time aspirin Allergy Swelling Verified 08/16/22 13:17 of Lip/Tongue/Throat Penicillins Allergy Swelling Verified 08/16/22 13:17 of Lip/Tongue/Throat PFSH PFS Disclaimer: The information contained in this section may have been updated after the patient was seen, as this information can be updated by other users. Medical History (Updated 12/27/22 @ 19:50 by Jordin Galindo MD) Black lung disease Dyspnea on exertion History of 2019 novel coronavirus disease (COVID-19) History of inguinal hernia History of pulmonary embolism Right inguinal hernia Surgical History (Updated 08/03/22 @ 08:16 by Jodi Akhtar RN) History of surgery on upper extremity History of thoracic surgery Family History Other Asthma Cancer Social History Smoking Status: Never smoker alcohol intake: never substance use type: denies use current occupational status: retired Travel in the last 8 weeks: None household members: family housing: house
[2022-12-27 17:02] LABS: Thyroid Stimulating Hormone 0.68 uIU/mL (0.465-4.68)
--- NOTE | 2022-12-27 17:02 | XR_ITS ---
PROCEDURE INFORMATION: Exam: XR Chest Exam date and time: 12/27/2022 5:05 PM Age: 77 years old Clinical indication: Fever TECHNIQUE: Imaging protocol: Radiologic exam of the chest. Views: 1 view. Total images: 1 COMPARISON: CR XR CHEST PORTABLE 05/24/2021 7:03 AM FINDINGS: Lungs: Bilateral hyperinflation is present. Atelectatic changes noted within both lung bases. Pleural spaces: No evidence of pneumothorax. No pleural effusions. Heart/Mediastinum: Unremarkable. No cardiomegaly. Diaphragm: There is nonspecific elevation of the right hemidiaphragm. Bones/joints: Unremarkable. IMPRESSION: 1. Bilateral hyperinflation is present. 2. Atelectatic changes noted within both lung bases. 3. No evidence of pneumothorax. 4. No pleural effusions.
--- NOTE | 2022-12-27 17:02 | PC.NURSE ---
pt in radiology
[2022-12-27 17:26] VITALS: BP 122/69; PULSE 77; O2SAT 96
--- NOTE | 2022-12-27 17:27 | PC.NURSE ---
pt given urinal to try to provide urine specimen, family assisting pt.
[2022-12-27 17:31] VITALS: BP 150/70; PULSE 61; O2SAT 94
[2022-12-27 18:02] LABS: Microscopic, Urine URINE MICROSCOPIC (MICROSCOPIC)
[2022-12-27 18:02] LABS: Influenza A, PCR Not Detected (NotDetected); Influenza B, PCR Not Detected (NotDetected)
[2022-12-27 18:04] LABS: Appearance,Urine CLEAR (Clear); Bilirubin,Urine Negative (Negative); Blood, Urine TRACE-I (Negative); Color,Urine YELLOW (Yellow); Glucose,Urine (UA) Negative (Negative); Ketones,Urine Negative (Negative); Leukocyte Esterase,Urine Negative (Negative); Nitrate,Urine Negative (Negative); Protein,Urine TRACE (Negative); Urobilinogen,Urine 0.2 EU/dl (0.2)
[2022-12-27 18:18] LABS: RBC,Urine Occasional #/hpf (0-3); Squamous Epithelial Cell,Urine Occasional #/hpf (0-5); WBC,Urine Occasional #/hpf (0-3)
[2022-12-27 18:55] LABS: Coronavirus 19, PCR Detected (NotDetected)
[2022-12-27 20:13] VITALS: BP 150/70; PULSE 61; RESP 16; TEMP 36.4; O2SAT 96
== END 2022-12-27 20:16 | disposition home or self-care (01) ==
PROVIDERS: Emergency Provider Emergency Medicine; PCP Internal Medicine Adolescent Medicine
DX: U07.1 COVID-19 (principal); R50.9 Fever, unspecified; R41.82 Altered mental status, unspecified; R53.1 Weakness; G30.9 Alzheimer's disease, unspecified; J60 Coalworker's pneumoconiosis
CPT/HCPCS: 36415; 70450; 71045; 74177; 80053; 81001; 83690; 83735; 84443; 85025; 87040; 87636; 93005; 96360; 99285; Q9967

== ENCOUNTER 2024-10-13 12:09 | Emergency (ER) | payer MEDICARE, SELFPAY ==
--- NOTE | 2024-10-13 12:12 | ECG_ITS ---
APPROVED REPORT Exam: Resting ECG HR:81 bpm ECG Measurements Heart Rate 81 AXES MI 197 P 51 QRSd 89 QRS 39 QT 378 T 33 QTc 415 Conclusion SINUS RHYTHM NONSPECIFIC T-WAVE ABNORMALITY BORDERLINE ECG No STEMI Electronically signed by : VASHTI LAMBERT, 10/14/2024 06:34:54
[2024-10-13 12:18] VITALS: BP 171/96; PULSE 84; RESP 17; TEMP 36.7; O2SAT 97; BMI 20.9
--- NOTE | 2024-10-13 12:42 | CT_ITS ---
FINAL REPORT TECHNIQUE: After the administration of intravenous contrast, axial images were obtained through the abdomen and pelvis by computed tomography. This study was performed with technique to keep radiation doses as low as reasonably achievable, (ALARA). Individualized dose reduction techniques using automated exposure control or adjustment of the MA and/or KV according to the patient's size were employed. CLINICAL HISTORY: hx hiatal hernia s/p repair subacute vom COMPARISON: 12/29/2022 FINDINGS: Abdomen: The lung bases demonstrate a subpleural right lower lobe nodule measuring 6 mm which was not included on prior exam. In the more inferior right lower lobe is airspace disease which may be infectious or inflammatory. The liver is normal in size and attenuation. There is a stable, hypodense lesion in the left hepatic lobe with peripheral nodular enhancement which could be related to hemangioma. No other liver lesion is identified. Gallbladder is mildly distended. No CT visible gallstones are present. The spleen is unremarkable. The adrenals are normal. The pancreas is unremarkable. There are small bilateral renal cysts. The aorta is normal in caliber. There is no free fluid or adenopathy. There is a small hiatal hernia. There is diverticulosis without evidence of diverticulitis. Pelvis: The appendix is normal. There are multiple diverticula of the urinary bladder. Prostate is mildly enlarged. There is no free fluid or adenopathy. No acute osseous abnormality is identified. IMPRESSION: Stable liver lesion, likely a hemangioma. Urinary bladder diverticula which could be related to chronic outlet obstruction. Right lower lobe pulmonary nodule. Recommend 6-month follow-up chest CT. Right lower lobe airspace disease which represent atelectasis versus infectious/inflammatory process. Reviewed, Interpreted and Dictated by Radha Stroud MD Transcribed by Glory Willingham Authenticated and [facility]
--- NOTE | 2024-10-13 12:44 | ED_ITS ---
Discharge Plan Disposition Patient Disposition: Home, Self-Care Prescriptions Prescriptions: New ondansetron 4 mg tablet,disintegrating 4 mg PO Q8H PRN (Reason: nausea and vomiting) 4 Days Qty: 12 0RF No Action famotidine 20 mg tablet 20 mg PO DAILY Referrals Follow up/Referrals: Parmjit Shore MD [Primary Care Provider, Internal Medicine] - See instructions Activity Restrictions/Add. Instructions Additional Instructions/Restrictions: At this time it was felt you are safe to be discharged home. If new or worsening symptoms please do not hesitate to return the emergency department. Please take your medication as prescribed. Please follow-up with Dr. Shore later this week as discussed. Clinical Impressions Clinical Impression: Vomiting, Altered behavior Print Language Print Language: Mauritanian Discharge ED Provider: Alex Lombardo General Adult HPI General Chief complaint: Weakness Stated complaint: foudn slumped over stove, disoriented Time Seen by Provider: 10/13/24 12:12 Mode of Arrival: Wheelchair Source of Information: Patient and Relative Description of Symptoms (Recalled from ER Triage Doc. by RN): pt to the ED after a near syncopal episode while standing at the stove. pt said he was just standing there catching his breath and denies any chest pain. pt family stated they feel like he has been weaker than usual and more fatigued over the last 2 weeks. History of Present Illness HPI narrative: Patient is a 78-year-old male with past medical history of black lung disease, hiatal hernia and inguinal hernia status postrepair who presents emergency department for altered sensorium. Patient was leaning over his kitchen counter today when he told his son members that he had to vomit and went out to the back porch and had an episode of nonbloody emesis. He did not fall and did not have true syncope. Patient is hard of hearing but does not have any other acute complaints at this time. History is largely obtained by family at bedside. Over the last 2 weeks he has had intermittent vomiting. He also has been increasingly forgetful over the last few months. No trauma. Please note that above description of symptoms, in this electronic medical record under categorization of recalled from ER triage doctor by RN are reflective of an initial nursing assessment, however, is not reflective of my full history and physical exam that was personally taken and clarified. Consequentially, this preceding description of symptoms, which may include the patient's categorized chief complaint in the EMR, do not reflect my personal clinical impression, and the ultimate description of history of present illness and patient stated complaints should be deferred to this section of the note. Unless stated otherwise or congruent with this section of the note, additional signs, symptoms, or incongruence should be interpreted as inaccurate with my clinical impression. Related Data Home Medications ?Medication ?Instructions ?Recorded ?Confirmed famotidine 20 mg tablet 20 mg PO DAILY Acid reflux 0 07/14/22 08/16/22 Previous Rx's ?Medication ?Instructions ?Recorded ondansetron 4 mg disintegrating 4 mg PO Q8H PRN nausea and 10/13/24 tablet vomiting 4 days #12 tabs Allergies Allergy/AdvReac Type Severity Reaction Status Date / Time aspirin Allergy Swelling Verified 08/16/22 13:17 of Lip/Tongue/Throat Penicillins Allergy Swelling Verified 08/16/22 13:17 of Lip/Tongue/Throat PFSH PFSH Disclaimer: The information contained in this section may have been updated after the patient was seen, as this information can be updated by other users. Medical History (Updated 10/13/24 @ 15:04 by Alex Lombardo MD) History of inguinal hernia Black lung disease History of pulmonary embolism Dyspnea on exertion History of 2019 novel coronavirus disease (COVID-19) Right inguinal hernia Surgical History (Updated 08/03/22 @ 08:16 by Jodi Akhtar RN) History of thoracic surgery History of surgery on upper extremity Family History Other Asthma Cancer Social History Smoking Status: Current every day smoker alcohol intake: never substance use type: denies use current occupational status: retired Travel in the last 8 weeks?: None household members: family housing: house marital status: service: No special alberto needs: No agree to transfusion: No do you feel safe at home: Yes victim of physical abuse: No victim of emotional abuse: No victim of sexual abuse: No would you like helpful sources: No Have you lived/traveled outside [place] in past 30 days?: No Contact w/someone who lives/traveled outside US past 30 days?: No Exposure to someone with infectious disease in past 14 days?: No Do you have a fever (greater than 100.4 F or 38 C)?: No Have you tested positive for COVID-19?: No Exposed to someone with COVID-19 in past 14 days?: No Do you have a sore throat?: No Do you have a cough?: No Do you have any weakness?: No Do you have any diarrhea?: No Are you experiencing any unusual bleeding?: No Do you have any muscle aches/pain?: No Do you have any abdominal pain?: No Are you experiencing loss of taste or smell?: No Other Medical History Have you received the Flu Vaccine for this season: No Have you received the Pneumonia Vaccine: No ROS Obtained: Yes Systems reviewed as appropriate & no additional complaints except as documented Physical Exam General General appearance: alert, in no apparent distress and other (Pleasant, hard of hearing) Head Head exam: atraumatic and normocephalic Eye Eye exam: Present PERRL and EOMI ENT ENT exam: Present mucous membranes moist Neck Neck exam: Present normal inspection Chest Chest inspection: Present normal inspection and symmetric chest wall rise Respiratory Respiratory exam: Present normal lung sounds bilaterally; Absent respiratory distress Cardiovascular Cardiovascular exam: Present regular rate and normal rhythm Abdominal Exam Abdominal exam: Present soft; Absent tenderness Extremities Exam Extremities exam: Present normal inspection Neurological Exam Neurological exam: Present alert; Absent motor sensory deficit Psychiatric Psychiatric exam: Present normal affect Skin Skin exam: Present warm and dry Medical Decision Making Medical Records Screening: Per USPSTF and CDC recommendations, given the prevalence of disease in our region, it is our hospital?s policy to screen for HIV and viral Hepatitis for all patients aged 18 and over and those with ongoing risk factors. Sarabjit Inquiry Pt receiving controlled substance: No Vital Signs: 10/13/24 12:18 Temperature 98.1 F Temperature Source Oral Pulse Rate [Left Radial] 84 Respiratory Rate 17 Blood Pressure [Right Arm] 171/96 H Blood Pressure Mean [Right Arm] 121 Blood Pressure Source [Right Arm] Automatic Cuff Blood Pressure Position [Right Arm] Sitting 02 Sat by Pulse Oximetry 97 Oxygen Delivery Method Room Air Lab Data Lab Results 10/13/24 12:18: WBC 6.0, RBC 4.66, Hgb 14.9, Hct 44.2, MCV 94.8 H, MCH 32.0 H, MCHC 33.7, RDW 12.2, Plt Count 252, MPV 9.7, Neut % (Auto) 65.2, Lymph % (Auto) 24.5, Faulkner % (Auto) 8.2, Eos % (Auto) 1.2, Baso % (Auto) 0.7, Neut # (Auto) 3.9, Lymph # (Auto) 1.5, Faulkner # (Auto) 0.5, Eos # (Auto) 0.1, Baso # (Auto) 0.0, Sodium 139, Potassium 4.5, Chloride 106, Carbon Dioxide 29, Anion Gap 8.5, BUN 14, Creatinine 0.70, Estimated Creat Clear 59, Estimated GFR 109, Est GFR ( Amer) 131, Glucose 167 H, Calcium 10.0, Total Bilirubin 0.5, AST 28, ALT 20, Alkaline Phosphatase 91, Total Protein 7.6, Albumin 4.2, Globulin 3.4 H, Albumin/Globulin Ratio 1.2, Lipase 37 10/13/24 12:23: Urine Color Yellow, Urine Appearance Clear, Urine pH 6.0, Ur Specific [place] 1.010, Urine Protein Negative, Urine Glucose (UA) Negative, Urine Ketones Negative, Urine Blood Negative, Urine Nitrate Negative, Urine Bilirubin Negative, Urine Urobilinogen 0.2, Ur Leukocyte Esterase Negative, Urine RBC None, Urine WBC None, Ur Squamous Epith Cells None, Urine Bacteria None 10/13/24 12:18 10/13/24 12:18 Orders (Tests/Meds): ED MEDICATIONS Generic Name Dose Route Start Last Admin Trade Name Freq PRN Reason Stop Dose Admin Sodium Chloride 10 ml 10/13/24 13:16 10/13/24 13:22 Sodium Chloride 0.9% 10ml Syr (Rad Only) IV 11/12/24 13:15 10 ml NEEDED PRN Administration Maintain IV Site Discontinued Medications Generic Name Dose Route Start Last Admin Trade Name Freq PRN Reason Stop Dose Admin Iopamidol 75 ml 10/13/24 13:16 10/13/24 13:22 Iopamidol-370 (76%);100ml Bottle IV 10/13/24 13:17 75 ml ONCE ONE Administration Ondansetron HCl 4 mg 10/13/24 12:46 10/13/24 13:07 Ondansetron 4mg/2ml Vial IV 10/13/24 12:47 4 mg ONCE ONE Administration ORDERS Category Date Time Status CT abdomen pelvis w con Stat Cat Scan 10/13/24 12:[address] head/brain wo con Stat Cat Scan 10/13/24 12:45 Completed CBC w/Auto Diff [Complete Blood Count Auto Diff] Stat Lab 10/13/24 12:18 Completed CMP [Comprehensive Metabolic Panel] Stat Lab 10/13/24 12:18 Completed Lipase Stat Lab 10/13/24 12:18 Completed UA [Urinalysis and Microscopic] Stat Lab 10/13/24 12:23 Completed ECG Data Tracing #1: Independently interpreted by me rate is 81, rhythm is regular, axis is normal, no ST elevation in anatomical contiguous leads, QTc 415 Medical Decision Narrative: In summary patient is a 78-year-old male past medical history Sage above presents emergency department for evaluation of vomiting, altered sensorium. Patient is hemodynamically stable nontoxic-appearing upon arrival, afebrile. Differential includes viral syndrome, dementia, intracranial mass, failed hiatal hernia repair, among others. Workup will be conducted with hematologic labs, EKG, CT abdomen pelvis IV contrast, urinalysis. Nurse inventions include Zofran. Initial workup reviewed by me, hematologic labs are nonactionable no significant leukocytosis or transfusable anemia no SNEHAL or critical electrolyte abnormality glucose mildly elevated 167 without elevated anion gap nonactionable, urinalysis interpreted by me and is not consistent with infection. CT imaging of the head informally visualized by me no acute large intra-axial hemorrhage. Formal read chronic small vessel ischemia, CT of the abdomen pelvis has a stable liver lesion likely hemangioma and urinary bladder diverticula which could be related to chronic outlet obstruction as well as a right lower lobe pulmonary nodule for which 6-month follow-up was recommended. There is right lower lobe airspace disease however he does not have any overt respiratory symptoms though may be concern for pneumonia so I doubt it is infectious in favor atelectasis. Upon repeat evaluation patient was well- appearing underwent p.o. trial ambulation trial was successful was appropriate for outpatient management at this time will be discharged with course of Zofran and family member at bedside was given return precautions verbalized understanding will follow-up with Dr. Shore later this week. Critical Care Critical Care Time Critical Care Time: No
--- NOTE | 2024-10-13 12:45 | CT_ITS ---
FINAL REPORT TECHNIQUE: Thin section axial images were obtained from skull base to vertex without contrast. Coronal reconstruction images were obtained from the axial data. Exam was performed using dose reduction techniques such as automated exposure control, adjustment of the mA and kV according to patient size, and use of iterative reconstruction technique. CLINICAL HISTORY: vom, altered memory COMPARISON: 12/27/2022 FINDINGS: There is atrophy. No mass effect or midline shift. No intracranial hemorrhage. No hydrocephalus. Periventricular low density is likely related to changes of chronic small vessel ischemia. The basilar cisterns are preserved. The posterior fossa is without acute abnormality. There is mucoperiosteal thickening of the left maxillary sinus without air-fluid level likely related to chronic sinusitis. No acute osseous abnormality is identified. IMPRESSION: No acute intracranial abnormality. Atrophy and changes suggesting chronic small vessel ischemia. Reviewed, Interpreted and Dictated by Radha Stroud MD Transcribed by Glory Willingham Authenticated and [facility]
[2024-10-13 12:47] LABS: Basophils % 0.7 % (0.1-2.0); Eosinophils # 0.1 Kmm3 (0.0-0.4); Eosinophils % 1.2 % (0.1-12.0); Hematocrit 44.2 % (42.0-52.0); Hemoglobin 14.9 g/dL (14.1-18.0); Immature Granulocytes # 0.01 10^3uL; Immature Granulocytes % 0.2 %; Lymphocytes # 1.5 K/mm3 (0.7-4.5); Lymphocytes % 24.5 % (10-50); Mean Corpuscular HGB Conc 33.7 g/dL (31.8-35.4); Mean Corpuscular Volume 94.8 fl (80-94); Mean Platelet Volume 9.7 fl (7.4-10.4); Monocytes # 0.5 K/mm3 (0.1-1.0); Monocytes % 8.2 % (1.7-9.3); Neutrophils # 3.9 K/mm3 (1.8-7.8); Neutrophils % 65.2 % (37.0-80.0); Nucleated Red Blood Cells # 0 10^3/uL; Nucleated Red Blood Cells % 0 %; Platelet Count 252 K/mm3 (142-424); Red Blood Count 4.66 M/mm3 (4.60-6.20); Red Cell Distribution Width 12.2 % (11.5-17.5); Red Cell Distribution Width-SD 42.4 fL
[2024-10-13 12:50] LABS: Albumin Level 4.2 g/dl (3.5-5.0); Chloride 106 mmol/L (98-107); Sodium 139 mmol/L (136-145)
[2024-10-13 12:51] LABS: Potassium 4.5 mmoL/L (3.5-5.1)
[2024-10-13 12:53] LABS: Alanine Aminotransferase 20 U/L (12-78); Albumin/Globulin Ratio 1.2 (1.1-1.8); Alkaline Phosphatase 91 U/L (38-126); Anion Gap 8.5 mEq/L (5-15); Aspartate Amino Transferase 28 U/L (17-59); Bilirubin,Total 0.5 mg/dl (0.2-1.3); Blood Urea Nitrogen 14 mg/dl (9-20); Carbon Dioxide 29 mmol/L (22.0-30.0); Creatinine Clearance Estimated 59 mL/min (50-200); Estimated Glomerular Filt Rate 109 ml/min (>60); GFR (African American) 131 ML/MIN (>60); Globulin 3.4 g/dL (1.3-3.2); Glucose 167 mg/dl (74-100); Lipase 37 U/L (23-300); Total Protein,Serum 7.6 g/dl (6.3-8.2)
[2024-10-13 12:56] LABS: Microscopic, Urine URINE MICROSCOPIC (MICROSCOPIC)
[2024-10-13 12:58] LABS: Appearance,Urine CLEAR (Clear); Bilirubin,Urine Negative (Negative); Blood, Urine Negative (Negative); Color,Urine YELLOW (Yellow); Glucose,Urine (UA) Negative (Negative); Ketones,Urine Negative (Negative); Leukocyte Esterase,Urine Negative (Negative); Nitrate,Urine Negative (Negative); Protein,Urine Negative (Negative); Urobilinogen,Urine 0.2 EU/dl (0.2)
[2024-10-13] MEDS: ONDANSETRON 4MG/2ML VIAL 4 MG IV (13:07)
[2024-10-13] MEDS: SODIUM CHLORIDE 0.9% 10ML SYR (RAD ONLY) 10 ML IV (13:22)
[2024-10-13] MEDS: IOPAMIDOL-370 (76%);100ML BOTTLE 75 ML IV (13:22)
[2024-10-13 15:35] VITALS: BP 171/96; PULSE 84; RESP 17; TEMP 36.7; O2SAT 97
== END 2024-10-13 15:36 | disposition home or self-care (01) ==
PROVIDERS: Emergency Provider Emergency Medicine; PCP Internal Medicine Adolescent Medicine
DX: R11.10 Vomiting, unspecified (principal); R41.82 Altered mental status, unspecified
CPT/HCPCS: 70450; 74177; 80053; 81001; 83690; 85025; 93005; 96374; 99285; J2405; Q9967